=== PATIENT | male | born 1990 | race Caucasian/White ===

== ENCOUNTER → 2016-11-03 | Outpatient (CLI) | payer OTHER ==
[~2016-11-03] MED LIST: CYCL10TA9 PO
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
== END ==
LOC: EDSEX 14:04 → RAD 14:04
PROVIDERS: ATTEND Orthopaedic Surgery
DX: S29.011A Strain of muscle and tendon of front wall of thorax, initial encounter (principal); X58.XXXA Exposure to other specified factors, initial encounter; Y99.8 Other external cause status
CPT/HCPCS: 73221

== ENCOUNTER 2016-12-10 06:12 | Emergency (ER) | payer OTHER ==
[~2016-12-10] VITALS: Ht 188 cm; Wt 90.7 kg
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
[2016-12-10] MEDS ORDERED: CYCL10TA9 PO (06:46)
[2016-12-10 06:49] VITALS: BP 134/99
== END 2016-12-10 06:51 | disposition home or self-care (01) ==
LOC: EDUNIT# 06:12 → ER 06:15
DX: S09.90XA Unspecified injury of head, initial encounter (principal); S00.01XA Abrasion of scalp, initial encounter; M25.511 Pain in right shoulder; F10.129 Alcohol abuse with intoxication, unspecified; Y04.0XXA Assault by unarmed brawl or fight, initial encounter; Y92.511 Restaurant or cafe as the place of occurrence of the external cause; Y99.8 Other external cause status
CPT/HCPCS: 99283